=== PATIENT | female | born 1940 | race Caucasian/White ===

== ENCOUNTER → 2018-12-17 | Outpatient (CLI) | payer MEDICARE ==
[~2018-12-17] MED LIST: ARICEPT 5 MG TAB5 MG PO; BINOSTO70 MG PO; CARVEDILOL3.125 MG PO; HYDROCHLOROTH12.5 M1 PO; NAMENDA 10 MG T10 MG PO; NORVASC5 MG PO; POTASSIUM20 PO; ZOCOR20 MG PO
== END ==
LOC: M.LAB 12-03 15:30 → M.MRI 12-03 16:30 → M.LAB 15:21
PROVIDERS: Family Medicine
DX: Z01.812 Encounter for preprocedural laboratory examination (principal); M47.812 Spondylosis without myelopathy or radiculopathy, cervical region; M48.02 Spinal stenosis, cervical region; M50.21 Other cervical disc displacement, high cervical region; R93.7 Abnormal findings on diagnostic imaging of other parts of musculoskeletal system

== ENCOUNTER 2019-07-12 08:00 | Emergency (ER) | payer MEDICARE ==
[~2019-07-12] VITALS: Ht 165.1 cm; Wt 78.5 kg
[2019-07-12 08:35] LABS: ABSOLUTE EOSINOPHILS 0.1 thou/uL (0.0-0.7); ABSOLUTE LYMPHOCYTES 1.7 thou/uL (0.8-5.3); ABSOLUTE MONOCYTES 0.5 thou/uL (0.0-1.2); ABSOLUTE NEUTROPHILS 3.9 thou/uL (1.6-8.1); BASOPHILS 0.7 %; EOSINOPHILS 1.7 %; HEMATOCRIT 45.8 % (37.0-47.0); HEMOGLOBIN 15.8 gm/dL (12.0-15.0); LYMPHOCYTES 27.5 %; MCH 31.9 pg (26.0-34.0); MCHC 34.6 g/dL (28.0-37.0); MCV 92.2 fL (80.0-100.0); MONOCYTES 7.8 %; MPV 9.1 fl. (7.2-11.1); NUCLEATED RBCS 0 /100WBC; PLATELET COUNT* 148 thou/uL (150-400); POLYS 62.3 %; RBC 4.97 mil/uL (4.20-5.00); RDW-CV 13.6 % (10.5-14.5); WBC 6.3 thou/uL (4.0-11.0)
[2019-07-12 08:48] LABS: APTT 27.2 Seconds (25.0-31.3); PROTIME 10.7 Seconds (9.20-11.50)
[2019-07-12 08:49] LABS: CALCIUM 9.4 mg/dL (8.5-10.1); CREATININE 1.1 mg/dL (0.6-1.3); POTASSIUM 3.3 mmol/L (3.5-5.1)
[2019-07-12 08:58] LABS: ALBUMIN 4.1 g/dL (3.4-5.0); CK-MB MASS 1.3 ng/mL (<0.5-3.6); MAGNESIUM 2.2 mg/dL (1.8-2.4); TOTAL BILIRUBIN 0.6 mg/dL (<0.1-1.0); TOTAL PROTEIN 7.4 g/dL (6.4-8.2)
[2019-07-12 11:37] VITALS: BP 137/73
--- NOTE | 2019-07-12 13:45 | EKG ---
[place] [address] ELECTROCARDIOGRAM REPORT Name: ANITRA SCOTT Room: [facility]#: [id number] Admission: 07/12/19 Attend Phys: Discharge: 07/12/19 Date of : 38 Report #: [id number] THIS REPORT FOR: //name// [facility] ED Test Date: 2019-07-12 Test Time: 08:24:19 Pat Name: ANITRA SCOTT Department: Room: Gender: F Vending Machine Operator: SUSI : 1940 Requested By: Arron Cabrera Order Number: [id number] MD: Eloy Valerio Measurements Intervals Lyman Rate: 60 P: 27 ND: 199 QRS: -42 QRSD: 166 T: 134 QT: 514 QTc: 514 Interpretive Statements Sinus rhythm Left bundle branch block Compared to ECG 03/22/2017 17:57:06 No significant changes Electronically Signed On 07-12-2019 13:45:24 [employer] by Eloy Vlaerio [email or web address] <ELECTRONICALLY SIGNED> By: Eloy Valerio MD, [facility] 07/12/19 1345 0824 3 Eloy Valerio MD, FACC /EPI
== END 2019-07-12 11:37 | disposition home or self-care (01) ==
LOC: M.ERS 08:00
PROVIDERS: Family Medicine
DX: R07.89 Other chest pain (principal); I10 Essential (primary) hypertension